=== PATIENT | female | born 1995 | race Caucasian/White ===

== ENCOUNTER 2018-07-01 23:59 | Emergency (ER) | payer SELFPAY ==
[2018-07-02] VITALS: BP 122/73; PULSE 92; RESP 18; TEMP 36.6; O2SAT 99; BMI 20.3
--- NOTE | 2018-07-02 00:26 | ED.DCSUM_ITS ---
- ER Visit Summary Date of Service: 07/02/18 Chief Complaint: Left leg pain History of Present Illness: The patient is a 23 F left calf pain for the past week. States pool table fell on it a week ago. Able to ambulate. Bruising improving. States patient with tingling in the calf. No medial thigh pain. No chest pains or shortness of breath. Family members reported concerns for DVT. No history of DVT or PE in the past. Physical Examination: General: Alert and oriented ?3, no acute distress HEENT: Normocephalic, atraumatic. Moist mucosa membranes Neck: supple, nontender. Cardiovascular: Regular rate and rhythm, no murmurs Respiratory: Normal breath sounds, symmetric, no distress Abdomen: Soft, nontender, nondistended Extremities: Left lower extremity: No medial thigh pain. There is healing contusion to posterior calf, no swelling. Skin intact. Negative Homans. DP intact. Neuro: no focal neurological deficits. Test Results: [] Emergency Department Course and Treatment: Patient does have healing contusion. This is possible risk factor for DVT. No current swelling. Pulses are intact. No current ultrasound available however she will be given outpatient prescription for an ultrasound in the morning. Risks and benefits discussed, will hold on anticoagulation medications. She is given follow-up with on-call Dr. Jamie Borja. Treatment Plan: [] Disposition: Discharged Impression: 1. Left calf contusion This note was generated with Writer[employer] dictation software. It may contain incorrect words, spelling, and punctuation that were not noted in review of the chart prior to signing ED Disposition - Plan for ED Patient: Disposition: Home or Assisted Living Chief Complaint: Lower Extremity Injury Diagnosis: Contusion of left calf Instructions: ED Contusion Lower Ext Referrals: Jamie Jama MD [STAFF PHYSICIAN] - 3-5 Days Additional Instructions: Obtain ultrasound lower extremity tomorrow. Follow-up as an outpatient.
== END 2018-07-02 01:01 | disposition home or self-care (01) ==
LOC: ED 07-02 00:37
PROVIDERS: Emergency Provider Emergency Medicine
DX: S80.12XA Contusion of left lower leg, initial encounter (principal); W20.8XXA Other cause of strike by thrown, projected or falling object, initial encounter; Y93.9 Activity, unspecified; Y92.89 Other specified places as the place of occurrence of the external cause; Y99.9 Unspecified external cause status; Z72.0 Tobacco use
CPT/HCPCS: 99282

== ENCOUNTER 2020-07-03 13:30 | Emergency (ER) | payer MEDICAID, SELFPAY ==
[2020-07-03 13:32] VITALS: BP 106/64; PULSE 117; RESP 14; TEMP 36.8; O2SAT 99; BMI 23.2
--- NOTE | 2020-07-03 13:50 | ED.VISSUMM ---
- ER Visit Summary Date of Service: 07/03/20 Chief Complaint: Injured left knee while trying to lift her father last night History of Present Illness: The patient is a 25 F no seen past medical history. Patient states last night she tried to lift her dad she twisted her left knee and thinks she dislocated her left knee Laterally. She went down to the ground. It relocated on its own. She thinks she is done this before but she is never had it evaluated. She is never had knee surgery. Said prior to trying to lift him and twisting her knee she was not having any pain. Physical Examination: Well-appearing young female. Vital signs stable afebrile. H EENT exam unremarkable. Neck nontender. Lungs clear to auscultation. Heart regular rhythm no murmur. Rate about 105. No murmur. Abdomen soft nontender normal bowel sounds no peritoneal signs. Patient is moving all 4 extremities. Neurovascular intact. Specifically left knee minimal swelling. She is able to flex and extend the left knee. ACL, PCL, MCL LCL are intact. Quadriceps patellar tendon and infrapatellar tendon are all intact. She is able to flex and extend her leg. She can lift her foot and heel off the bed. There is no gross bony deformity. There is no signs currently of a dislocation. There is no signs of a septic joint. Left hip ankle and foot are nontender neurovascular intact with normal range of motion. DP pulses intact. Dorsi plantarflexion intact as is sensation the left foot. Right lower extremities unremarkable. Neurologically she is awake and alert with no focal motor deficits. Test Results: Left knee x-ray 4 views read by myself shows no acute abnormality. No dislocation. No fractures. No significant effusion. Emergency Department Course and Treatment: Motrin for pain. From what patient describes it appears she had a left patellar dislocation that spontaneously reduced itself. At this time she is not dislocated. X-ray will be obtained. Patient doing well on repeat exam at 2:12 PM. We went over x-rays. Patient did request crutches due to pain with weightbearing. Treatment Plan: Ice and elevate. Increase activity as tolerated. Follow-up with orthopedics if not improving. Motrin for pain and swelling.. Disposition: Discharge Impression: Acute left knee sprain Rule out left patella dislocation that spontaneously resolved This note was generated with [employer]arn[employer] software. It may contain incorrect words, spelling, and punctuation that were not noted in review of the chart prior to signing ED Disposition - Plan for ED Patient: Disposition: Home or Assisted Living Instructions: ED Sprain Knee Referrals: Michael Reagan MD [STAFF PHYSICIAN] - 1 Week if not improving [facility],Out of [NON-STAFF] - As Needed Additional Instructions: Ice and elevate your knee to decrease pain and swelling. Increase activity as tolerated. Motrin for pain and swelling and Tylenol for pain. Follow-up with orthopedic doctor if not improving for further evaluation of your knee.
--- NOTE | 2020-07-03 13:57 | RAD_ITS ---
STUDY: X-RAY - LEFT KNEE REASON FOR EXAM: Female, 25 years old. LEFT KNEE PAIN AFTER TWISTING TECHNIQUE: 4 view(s) of the knee. COMPARISON: None. FINDINGS: Normal visualized distal femur. Normal visualized proximal tibia and fibula. Normal proximal tibiofibular articulation. Normal medial femorotibial compartment. Normal lateral femorotibial compartment. Normal patellofemoral articulation. The soft tissue structures are unremarkable. RAD/Knee 4 or More Views IMPRESSION: Normal x-ray examination of the knee. Electronically Signed: Ziggy Ball, at 14:13 EDT , Service support ,
--- NOTE | 2020-07-03 14:14 | ED.DEP ---
ED Disposition - Plan for ED Patient: Disposition: Home or Assisted Living Instructions: ED Sprain Knee Referrals: Michael Reagan MD [STAFF PHYSICIAN] - 1 Week if not improving [facility],Out of [NON-STAFF] - As Needed Additional Instructions: Ice and elevate your knee to decrease pain and swelling. Increase activity as tolerated. Motrin for pain and swelling and Tylenol for pain. Follow-up with orthopedic doctor if not improving for further evaluation of your knee.
[2020-07-03] MEDS: Ibuprofen 600 MG Tablet PO (14:25)
== END 2020-07-03 14:35 | disposition home or self-care (01) ==
PROVIDERS: Emergency Provider Emergency Medicine
DX: S83.92XA Sprain of unspecified site of left knee, initial encounter (principal); X50.1XXA Overexertion from prolonged static or awkward postures, initial encounter; Z72.0 Tobacco use
CPT/HCPCS: 73564; 99284